=== PATIENT | female | born 2000 | race Two or more races ===

== ENCOUNTER 2023-01-16 19:12 | Emergency (ER) | payer MEDICAID ==
[~2023-01-16] VITALS: Ht 152.4 cm; Wt 38.6 kg
[2023-01-16] MEDS ORDERED: ONDANSETRON 4 MG TAB.RAPDIS ONE (22:57)
[2023-01-16] MEDS ORDERED: KETOROLAC TROMETHAMINE INJ 30 MG/ML VIAL ONE (22:57)
[2023-01-16] MEDS ORDERED: diphenhydrAMINE HCL 50 MG/ML VIAL ONE (22:57)
[2023-01-16] MEDS ORDERED: ONDANSETRON 4 MG TAB.RAPDIS PO ONE (23:00)
[2023-01-16] MEDS ORDERED: IV NS 0.9% 1,000 ML BAG IV ONE (23:00)
[2023-01-16] MEDS ORDERED: KETOROLAC TROMETHAMINE INJ 30 MG/ML VIAL IV ONE (23:00)
[2023-01-16] MEDS ORDERED: diphenhydrAMINE HCL 50 MG/ML VIAL IV ONE (23:00)
[2023-01-16] MEDS ORDERED: ONDANSETRON HCL/PF 4 MG/2 ML VIAL ONE (23:19)
[2023-01-16] MEDS ORDERED: ONDANSETRON HCL/PF - ER 4 MG/2 ML VIAL IV ONE (23:30)
[2023-01-17] MEDS ORDERED: KETO10TA2 PO (00:10)
[2023-01-17] MEDS ORDERED: LORAZEPAM 1 MG TABLET ONE (00:12)
[2023-01-17] MEDS ORDERED: LORAZEPAM INJ 2 MG/ML VIAL ONE (00:14)
[2023-01-17] MEDS ORDERED: LORAZEPAM INJ 2 MG/ML VIAL IV ONE (00:30)
[2023-01-17 00:49] VITALS: BP 126/79; TEMP 98; O2SAT 97
== END 2023-01-17 00:49 | disposition home or self-care (01) ==
LOC: ER 19:23
DX: G44.209 Tension-type headache, unspecified, not intractable (principal); F41.9 Anxiety disorder, unspecified; D64.9 Anemia, unspecified; Z79.899 Other long term (current) drug therapy
CPT/HCPCS: 99284; 96374; 96375 ×2; 96361; 72050; J1200; J1885; J2405 ×2; J7030; J2060; Q0162

== ENCOUNTER 2023-01-18 18:06 | Emergency (ER) | payer MEDICAID ==
[~2023-01-18] VITALS: Ht 152.4 cm; Wt 38.6 kg
[~2023-01-18 18:06] MED LIST: KETO10TA2 PO
[2023-01-18 18:28] VITALS: BP 147/99; TEMP 98.7; O2SAT 100
== END 2023-01-18 22:09 | disposition home or self-care (01) ==
LOC: ER 18:24
DX: S16.1XXA Strain of muscle, fascia and tendon at neck level, initial encounter (principal); Z60.2 Problems related to living alone; X58.XXXA Exposure to other specified factors, initial encounter; Y93.89 Activity, other specified; Y92.89 Other specified places as the place of occurrence of the external cause; Y99.8 Other external cause status